=== PATIENT | female | born 1960 | race Caucasian/White ===

== ENCOUNTER 2020-04-02 07:17 | Outpatient (CLI) | payer BC, SELFPAY ==
--- NOTE | ~2020-04-02 | NM_ITS ---
EXAM: NM gastric emptying study DATE: 04/02/2020 12:26 INDICATION: Nausea. TECHNIQUE: A gastric emptying study was performed using the methodology of Carlitos MARTINEZ, et al. J Nucl Med 2007; 48:568-572. The patient was given a meal consisting of 2 scrambled eggs labeled with 0.972 mCi Tc-99m sulfur colloid, 2 slices of toast, two packages of jam, and approximately 120 mL of water . Simultaneous anterior and posterior 1-min images of the abdomen were obtained with the patient supi ne at multiple time points over a total period of 4 hours. The geometric mean of anterior and posteri or views was determined, and the percentage retention was calculated for each time point. COMPARISON: CT abdomen and pelvis 08/18/2016 FINDINGS: Gastric retention of the radiotracer-labeled meal was 46%, 22%, and 2% at the 1-hour, 2-ho ur, and 4-hour time points, respectively. With this technique, apparent rapid gastric emptying is sug gested by <30% gastric retention at 1 hour. Delayed gastric emptying is defined by gastric retention of >90% at 1 hour, >60% retention at 2 hours, or >10% retention at 4 hours. IMPRESSION: 1. Normal gastric emptying. Reviewed, dictated and finalized at location [facility] IMPRESSION: 1. Normal gastric emptying.
== END 2020-04-02 07:18 | disposition home or self-care (01) ==
PROVIDERS: PCP Emergency Medicine; Visit Provider Internal Medicine Gastroenterology
DX: R11.0 Nausea (principal); R10.9 Unspecified abdominal pain
CPT/HCPCS: 78264; A9541

== ENCOUNTER → 2020-04-27 02:34 | Outpatient (CLI) | payer BC, SELFPAY ==
[2020-04-27 20:35] LABS: SARS-CoV-2 RNA PCR Negative
== END ==
PROVIDERS: PCP Emergency Medicine; Visit Provider Internal Medicine Gastroenterology
DX: Z01.812 Encounter for preprocedural laboratory examination (principal); Z20.822 Contact with and (suspected) exposure to COVID-19
CPT/HCPCS: C9803; U0003; U0005

== ENCOUNTER 2020-04-30 01:10 | Day surgery (SDC) | payer BC, SELFPAY ==
[2020-04-14 10:27] VITALS: BMI 33.0
--- NOTE | 2020-04-29 09:42 | WPDANESEPPF ---
Anes - Initial Pre Proc Eval Procedure: Operation Date: 04/30/20 08:30 Proposed Procedures p Screening Colonoscopy - Juvencio Carrera MD Date/Time: 04/29/20 09:42 Surgeon: Juvencio Carrera MD Pre Op Diagnosis: Neoplasm Screening Patient Data Age: 60 Gender: F Height: 1.61 m Weight: 86 kg Allergies Allergy/AdvReac Type Severity Reaction Status Date / Time amoxicillin Allergy Mild Diarrhea Verified 04/30/20 07:12 clavulanic acid AdvReac Intermediate Diarrhea Verified 04/30/20 07:12 Home Medications Medication Instructions Recorded Confirmed Type alprazolam 0.25 mg tablet 0.25 mg PO DAILY PRN 02/17/20 04/14/20 History bupropion HCl 150 mg tablet,12 hr 150 mg PO DAILY 02/17/20 04/14/20 History sustained-release levothyroxine 75 mcg capsule 75 mcg PO DAILY 02/17/20 04/14/20 History omeprazole 40 mg capsule,delayed 40 mg PO DAILY 02/17/20 04/14/20 History release cyanocobalamin (vitamin B-12) 1,000 mcg IM MO 04/14/20 04/14/20 History paroxetine HCl 15 mg PO DAILY 04/14/20 04/14/20 History rosuvastatin 10 mg PO HS 04/14/20 04/14/20 History trazodone 50 mg PO HS 04/14/20 04/14/20 History Patient hx anesthesia problems: none Family hx anesthesia problems: none PMFSH Past Medical History Medical History (Updated 04/29/20 @ 09:44 by Frank Hurley DO) Abdominal pain Anxiety Colon cancer screening Depression GERD (gastroesophageal reflux disease) History of gastric ulcer Hyperlipidemia Hypothyroidism Nausea VERNON (obstructive sleep apnea) O2 at night Thyroid disease Family History Family History (Updated 02/17/20 @ 15:57 by Rani Erickson MA) Father Alzheimer disease Mother Heart attack FH: kidney cancer Sibling Lung cancer Bone cancer Social History Social History Smoking status: Never smoker Alcohol intake: never Substance use: never Substance use type: does not use Living arrangements: with family Spiritual care concerns: No Anes - Eval Final PreProcedure Day of Procedure 04/29/20 09:42 Patient weight: obese Heart: regular rate and rhythm Lungs: clear to auscultation and normal air movement Airway: Mallampati scale class II Neurological: alert and oriented Last oral intake: >/= 8 hours ASA classification: III Emergent: no Anesthetic plan: proceed Anesthesia type and monitoring: general GIVS and standard monitoring Informed Consent: The patient's anesthetic plan and its attendant risks and benefits were discussed with the patient/family/POA. Questions were solicited and answers provided to the satisfaction of the patient/family/POA.
[2020-04-30 07:14] VITALS: BP 115/93; PULSE 82; RESP 18; TEMP 36.6; O2SAT 95
[2020-04-30] MEDS: LACTATED RINGERS 1,000 ML 150 ML IV CONT (07:16)
--- NOTE | 2020-04-30 08:40 | PM.HPGS ---
History of Present Illness History of Present Illness Consent: Risks, benefits, and alternatives have been discussed and questions answered. Patient agrees to proceed with procedure. Chief complaint: Neoplasm Screening Narrative: Reyna Luke is a 60 year old female here for screening colonoscopy, last one 10 years ago. Review of Systems Constitutional: Constitutional: Denies headache(s) and Denies weakness Eyes: Eyes: Denies blurry vision ENT: Reports Normal hearing present, Denies headache(s) and Denies neck pain Cardiovascular: Cardiovascular: Denies chest pain and Denies dyspnea Respiratory: Respiratory: Denies dyspnea Gastrointestinal: Gastrointestinal: Reports no additional gastrointestinal complaints Genitourinary: Genitourinary: Denies dysuria Musculoskeletal: Musculoskeletal: Denies neck pain Integumentary/Breasts: Skin/Breast: Denies dry skin Neurologic: Reports Normal hearing present, Denies headache(s) and Denies weakness Psychiatric: Psychiatric: Denies anxiety Endocrine: Endocrine: Denies change in body appearance Hematologic/Lymphatic: Hematologic/Lymphatic: Denies easy bleeding Allergic/Immunologic: Allergic/Immunologic: Denies urticaria PMFSH Past Medical History Medical History (Updated 04/29/20 @ 09:44 by Frank Hurley DO) Abdominal pain Anxiety Colon cancer screening Depression GERD (gastroesophageal reflux disease) History of gastric ulcer Hyperlipidemia Hypothyroidism Nausea VERNON (obstructive sleep apnea) O2 at night Thyroid disease Family History Family History (Updated 02/17/20 @ 15:57 by Rani Erickson MA) Father Alzheimer disease Mother Heart attack FH: kidney cancer Sibling Lung cancer Bone cancer Social History Social History Smoking status: Never smoker Alcohol intake: never Substance use: never Substance use type: does not use Living arrangements: with family Spiritual care concerns: No Meds Home Medications and Allergies Home Medications Medication Instructions Recorded Confirmed Type alprazolam 0.25 mg tablet 0.25 mg PO DAILY PRN 02/17/20 04/14/20 History bupropion HCl 150 mg tablet,12 hr 150 mg PO DAILY 02/17/20 04/14/20 History sustained-release levothyroxine 75 mcg capsule 75 mcg PO DAILY 02/17/20 04/14/20 History omeprazole 40 mg capsule,delayed 40 mg PO DAILY 02/17/20 04/14/20 History release cyanocobalamin (vitamin B-12) 1,000 mcg IM MO 04/14/20 04/14/20 History paroxetine HCl 15 mg PO DAILY 04/14/20 04/14/20 History rosuvastatin 10 mg PO HS 04/14/20 04/14/20 History trazodone 50 mg PO HS 04/14/20 04/14/20 History Allergies Allergy/AdvReac Type Severity Reaction Status Date / Time amoxicillin Allergy Mild Diarrhea Verified 04/30/20 07:12 clavulanic acid AdvReac Intermediate Diarrhea Verified 04/30/20 07:12 Vital Signs Vital Signs - 24 hr 04/30/20 07:14 Temperature 97.8 F Pulse Rate 82 Respiratory Rate 18 Blood Pressure 115/93 H Pulse Oximetry 95 Exam Const: General: comfortable and no acute distress HENMT: General nose exam: Normal nares present Eyes: General: appearance normal, both eyes and all related structures Neck: Neck: no JVD Resp: Auscultation: clear to auscultation bilaterally Cardio: Rate: regular rate Rhythm: regular rhythm GI: Inspection: non-distended GI Palp: Yes Soft to palpation Skin: General skin exam: normal color Neuro: General: gait normal Speech: normal speech Extrem: General: normal to inspection Psych: Mental Status: mental status grossly normal Assessment and Plan Assessment and plan (1) Colon cancer screening: Code(s): Z12.11 - Encounter for screening for malignant neoplasm of colon Status: Acute Assessment and Plan: proceed with colonoscopy
[2020-04-30 09:01] VITALS: BP 96/64; PULSE 70; RESP 23; O2SAT 96
[2020-04-30 09:11] VITALS: BP 106/65; PULSE 63; RESP 22; O2SAT 96
[2020-04-30 09:21] VITALS: BP 106/75; PULSE 60; RESP 18; O2SAT 96
== END 2020-04-30 09:58 | disposition home or self-care (01) ==
PROVIDERS: PCP Emergency Medicine; Visit Provider Internal Medicine Gastroenterology
PROC: 0DJD8ZZ Inspection of Lower Intestinal Tract, Via Natural or Artificial Opening Endoscopic (ICD-10-PCS; CPT 45378; principal; 2020-04-30 08:30)
DX: Z12.11 Encounter for screening for malignant neoplasm of colon (principal); K63.5 Polyp of colon; D12.3 Benign neoplasm of transverse colon; K64.4 Residual hemorrhoidal skin tags; K64.8 Other hemorrhoids; F41.9 Anxiety disorder, unspecified; F32.9 Major depressive disorder, single episode, unspecified; E78.5 Hyperlipidemia, unspecified; E03.9 Hypothyroidism, unspecified; G47.33 Obstructive sleep apnea (adult) (pediatric); E66.9 Obesity, unspecified; Z68.32 Body mass index [BMI] 32.0-32.9, adult; K57.30 Diverticulosis of large intestine without perforation or abscess without bleeding
CPT/HCPCS: 45380; 45385; 88305; J2001; J2704; J7120

== ENCOUNTER → 2020-06-04 04:51 | Outpatient (CLI) | payer BC, SELFPAY ==
[2020-06-04 19:22] LABS: SARS-CoV-2 RNA PCR Negative
== END ==
PROVIDERS: PCP Emergency Medicine; Visit Provider Internal Medicine Gastroenterology
DX: Z01.812 Encounter for preprocedural laboratory examination (principal); Z20.822 Contact with and (suspected) exposure to COVID-19
CPT/HCPCS: C9803; U0003; U0005

== ENCOUNTER 2020-06-07 01:42 | Day surgery (SDC) | payer BC, SELFPAY ==
[2020-05-25 13:09] VITALS: BMI 33.2
[2020-06-07 09:04] VITALS: BP 114/63; PULSE 70; RESP 18; TEMP 36.4; O2SAT 97; BMI 33.4
[2020-06-07] MEDS: LACTATED RINGERS 1,000 ML 150 ML IV CONT (09:13)
--- NOTE | 2020-06-07 09:20 | WPDANESEPPF ---
Anes - Initial Pre Proc Eval Procedure: Operation Date: 06/07/20 10:00 Proposed Procedures p Esophagogastroduodenoscopy - Juvencio Carrera MD Date/Time: 06/07/20 09:20 Surgeon: Juvencio Carrera MD Pre Op Diagnosis: Epigastric Pain Patient Data Age: 60 Gender: F Height: 5 ft 3 in Weight: 85.6 kg Last Vital Signs Temp 97.5 F L 06/07/20 09:04 Pulse 70 06/07/20 09:04 Resp 18 06/07/20 09:04 BP 114/63 06/07/20 09:04 Pulse Ox 97 06/07/20 09:04 Allergies Allergy/AdvReac Type Severity Reaction Status Date / Time amoxicillin Allergy Mild Diarrhea Verified 06/07/20 09:03 clavulanic acid AdvReac Intermediate Diarrhea Verified 06/07/20 09:03 Home Medications Medication Instructions Recorded Confirmed Type alprazolam 0.25 mg tablet 0.25 mg PO DAILY PRN 02/17/20 05/25/20 History bupropion HCl 150 mg tablet,12 hr 150 mg PO DAILY 02/17/20 05/25/20 History sustained-release levothyroxine 75 mcg capsule 75 mcg PO DAILY 02/17/20 06/07/20 History omeprazole 40 mg capsule,delayed 40 mg PO DAILY 02/17/20 05/25/20 History release cyanocobalamin (vitamin B-12) 1,000 mcg IM MO 04/14/20 05/25/20 History paroxetine HCl [Paxil] 15 mg PO DAILY 04/14/20 05/25/20 History rosuvastatin 10 mg PO HS 04/14/20 05/25/20 History trazodone 50 mg PO HS 04/14/20 05/25/20 History Patient hx anesthesia problems: none Family hx anesthesia problems: none PMFSH Past Medical History Medical History (Updated 04/29/20 @ 09:44 by Frank Hurley DO) Abdominal pain Anxiety Colon cancer screening Depression GERD (gastroesophageal reflux disease) History of gastric ulcer Hyperlipidemia Hypothyroidism Nausea VERNON (obstructive sleep apnea) O2 at night Thyroid disease Family History Family History (Updated 02/17/20 @ 15:57 by Rani Erickson MA) Father Alzheimer disease Mother Heart attack FH: kidney cancer Sibling Lung cancer Bone cancer Social History Social History Smoking status: Never smoker Alcohol intake: never Substance use: never Substance use type: does not use Living arrangements: with family Gender identity (if verbalized by the patient): Female Spiritual care concerns: No Anes - Eval Final PreProcedure Day of Procedure 06/07/20 09:20 Patient weight: obese Heart: regular rate and rhythm Lungs: clear to auscultation Airway: Mallampati scale class II Neurological: alert and oriented Last oral intake: >/= 8 hours ASA classification: III Emergent: no Anesthetic plan: proceed Anesthesia type and monitoring: general GIVS and standard monitoring Informed Consent: The patient's anesthetic plan and its attendant risks and benefits were discussed with the patient/family/POA. Questions were solicited and answers provided to the satisfaction of the patient/family/POA.
--- NOTE | 2020-06-07 09:55 | PM.HPGS ---
History of Present Illness History of Present Illness Consent: Risks, benefits, and alternatives have been discussed and questions answered. Patient agrees to proceed with procedure. Chief complaint: Epigastric Pain Narrative: Reyna Luke is a 60 year old female with intermittent epigastric pain on omeprazole but still symptomatic, had normal gastric emptying study Review of Systems Constitutional: Constitutional: Denies headache(s) and Denies weakness Eyes: Eyes: Denies blurry vision ENT: Reports Normal hearing present, Denies headache(s) and Denies neck pain Cardiovascular: Cardiovascular: Denies chest pain and Denies dyspnea Respiratory: Respiratory: Denies dyspnea Gastrointestinal: Gastrointestinal: Reports no additional gastrointestinal complaints Genitourinary: Genitourinary: Denies dysuria Musculoskeletal: Musculoskeletal: Denies neck pain Integumentary/Breasts: Skin/Breast: Denies dry skin Neurologic: Reports Normal hearing present, Denies headache(s) and Denies weakness Psychiatric: Psychiatric: Denies anxiety Endocrine: Endocrine: Denies change in body appearance Hematologic/Lymphatic: Hematologic/Lymphatic: Denies easy bleeding Allergic/Immunologic: Allergic/Immunologic: Denies urticaria PMF Past Medical History Medical History (Updated 06/07/20 @ 09:56 by Juvencio Carrera MD) Abdominal pain Anxiety Colon cancer screening Depression Epigastric pain GERD (gastroesophageal reflux disease) History of gastric ulcer Hyperlipidemia Hypothyroidism Nausea VERNON (obstructive sleep apnea) O2 at night Thyroid disease Family History Family History (Updated 02/17/20 @ 15:57 by Rani Erickson MA) Father Alzheimer disease Mother Heart attack FH: kidney cancer Sibling Lung cancer Bone cancer Social History Social History Smoking status: Never smoker Alcohol intake: never Substance use: never Substance use type: does not use Living arrangements: with family Gender identity (if verbalized by the patient): Female Spiritual care concerns: No Meds Home Medications and Allergies Home Medications Medication Instructions Recorded Confirmed Type alprazolam 0.25 mg tablet 0.25 mg PO DAILY PRN 02/17/20 05/25/20 History bupropion HCl 150 mg tablet,12 hr 150 mg PO DAILY 02/17/20 05/25/20 History sustained-release levothyroxine 75 mcg capsule 75 mcg PO DAILY 02/17/20 06/07/20 History omeprazole 40 mg capsule,delayed 40 mg PO DAILY 02/17/20 05/25/20 History release cyanocobalamin (vitamin B-12) 1,000 mcg IM MO 04/14/20 05/25/20 History paroxetine HCl [Paxil] 15 mg PO DAILY 04/14/20 05/25/20 History rosuvastatin 10 mg PO HS 04/14/20 05/25/20 History trazodone 50 mg PO HS 04/14/20 05/25/20 History Allergies Allergy/AdvReac Type Severity Reaction Status Date / Time amoxicillin Allergy Mild Diarrhea Verified 06/07/20 09:03 clavulanic acid AdvReac Intermediate Diarrhea Verified 06/07/20 09:03 Vital Signs Vital Signs - 24 hr 06/07/20 09:04 Temperature 97.5 F L Pulse Rate 70 Respiratory Rate 18 Blood Pressure 114/63 Pulse Oximetry 97 Exam Const: General: comfortable and no acute distress HENMT: General nose exam: Normal nares present Eyes: General: appearance normal, both eyes and all related structures Neck: Neck: no JVD Resp: Auscultation: clear to auscultation bilaterally Cardio: Rate: regular rate Rhythm: regular rhythm GI: Inspection: non-distended GI Palp: Yes Soft to palpation Skin: General skin exam: normal color Neuro: General: gait normal Speech: normal speech Extrem: General: normal to inspection Psych: Mental Status: mental status grossly normal Assessment and Plan Assessment and plan (1) Nausea: Code(s): R11.0 - Nausea Status: Acute (2) Epigastric pain: Code(s): R10.13 - Epigastric pain Status: Acute Assessment and Plan: egd with bx
[2020-06-07 10:07] VITALS: BP 111/73; PULSE 58; RESP 22; O2SAT 97
[2020-06-07 10:17] VITALS: BP 113/71; PULSE 64; RESP 18; O2SAT 100
[2020-06-07 10:27] VITALS: BP 118/77; PULSE 58; RESP 20; O2SAT 100
== END 2020-06-07 10:57 | disposition home or self-care (01) ==
PROVIDERS: PCP Emergency Medicine; Visit Provider Internal Medicine Gastroenterology
PROC: 0DJ08ZZ Inspection of Upper Intestinal Tract, Via Natural or Artificial Opening Endoscopic (ICD-10-PCS; CPT 43235; principal; 2020-06-07 10:00)
DX: K29.50 Unspecified chronic gastritis without bleeding (principal); K21.9 Gastro-esophageal reflux disease without esophagitis; E78.5 Hyperlipidemia, unspecified; E03.9 Hypothyroidism, unspecified; G47.33 Obstructive sleep apnea (adult) (pediatric); F41.8 Other specified anxiety disorders; Z87.11 Personal history of peptic ulcer disease; E66.9 Obesity, unspecified; Z68.33 Body mass index [BMI] 33.0-33.9, adult
CPT/HCPCS: 43239; 88305; J2704; J7120